=== PATIENT | female | born 1995 | race Caucasian/White ===

== ENCOUNTER 2021-09-05 15:58 | Emergency (ER) | payer SELFPAY ==
[~2021-09-05] VITALS: Ht 162.6 cm; Wt 89.8 kg
[2021-09-05 17:44] VITALS: BP 114/83
[2021-09-05] MEDS ORDERED: AZIT250T8 PO (17:56)
[2021-09-05] MEDS ORDERED: ACET-1080 PO (17:56)
== END 2021-09-05 18:17 | disposition home or self-care (01) ==
LOC: ER 15:58
DX: J02.9 Acute pharyngitis, unspecified (principal)